=== PATIENT | male | born 2000 | race Caucasian/White ===

== ENCOUNTER 2020-08-24 17:46 | Emergency (ER) | payer SELFPAY ==
[~2020-08-24 17:46] MED LIST: LORTAB 1010 MG PO; TYLENOL CH160 MG/5 M OR; adderal
== END 2020-08-24 18:38 | disposition left against medical advice (07) | DRG 951 ==
LOC: ED 17:46 → LWOBS 18:38 → ED 18:38
DX: Z53.21 Procedure and treatment not carried out due to patient leaving prior to being seen by health care provider (principal)